=== PATIENT | female | born 1955 | race Caucasian/White ===

== ENCOUNTER 2019-06-27 03:41 | Inpatient (IN) ==
[2019-06-27] MEDS ORDERED: MORPHINE IV ONE (04:27)
--- NOTE | 2019-06-27 04:27 | PROVIDER DOCUMENTATION ---
HPI-Chest Pain - General Chief Complaint: Chest Pain Stated Complaint: POSSIBLE HEART ATTACK-HX OF HEART ATTACK Time Seen by Provider: 06/27/19 03:51 Source: patient Allergies/Adverse Reactions: Patient Allergies Allergy/AdvReac Type Severity Reaction Status Date / Time No Known Allergies Allergy Verified 07/09/13 01:58 Home Medications: Home Medication List Medication Instructions Recorded Confirmed Last Taken Type Amlodipine [Norvasc] 5 mg PO DAILY 07/09/13 07/09/13 Unknown History Aspirin [Aspirin EC] 81 mg PO 07/09/13 07/09/13 Unknown History Carvedilol [Coreg] 6.25 mg PO BID 07/09/13 07/09/13 Unknown History Citalopram [Celexa] 20 mg PO DAILY 07/09/13 07/09/13 Unknown History Clopidogrel [Plavix] 75 mg PO DAILY 07/09/13 07/09/13 Unknown History Ezetimibe [Zetia] 10 mg PO DAILY 07/09/13 07/09/13 Unknown History Gabapentin 200 mg PO BID 07/09/13 07/09/13 Unknown History Isosorbide Mononitrate [Isosorbide 30 mg PO BID 07/09/13 07/09/13 Unknown History Mononitrate ER] LISINOpril [Prinivil] 5 mg PO DAILY 07/09/13 07/09/13 Unknown History Pantoprazole [Protonix] 40 mg PO DAILY@0700 07/09/13 07/09/13 Unknown History - History of Present Illness-CP Nature of Presenting Problem: Patient is a 63 year old white female with history of CAD (S/P CABG & cardiac stents), tobacco abuse, and stage 4 small cell lung cancer complaining of sudden onset of 9/10 sharp substernal chest pain that radiates to left arm- onset 45 minutes prior t0 arrival. Patient took 325mg asprin today. Chest Pain Radiation: reports: arms (left) Quality of Pain: reports: aching, sharp Onset/Duration: gradual, other (45 minutes ago) Nitro Today/Relief: no nitro taken today Aspirin Treatment Today: 325 mg x 1 Similar Symptoms Previously?: Yes Review of Systems - Adult - REVIEW OF SYSTEMS - ADULT Constitutional: denies: chills, fever Eyes: reports: no symptoms reported Ears, Nose, Mouth & Throat: reports: no symptoms reported Cardiovascular: reports: chest pain Respiratory: reports: see HPI Gastrointestinal: reports: no symptoms reported Genitourinary: reports: no symptoms reported Musculoskeletal: reports: no symptoms reported Integumentary: reports: no symptoms reported Neurological: reports: no symptoms reported Psychiatric: reports: no symptoms reported Endocrine: reports: no symptoms reported Past History - Adult - PAST MEDICAL HISTORY-ADULT Review of Records: reports: Old Records Reviewed, Nursing Assessment Review Major Childhood Illnesses: reports: denies history, history unknown - HEART Score HEART Score: History: Moderately Suspicious HEART Score: ECG: Normal HEART Score: Age: 45-65 Years HEART Score: Risk Factors for Atherosclerotic Disease: > or = 3 Risk Factors or History of Atherosclerotic Disease HEART Score: Troponin: < or = Normal Limit Total HEART Score:: 4 Progress - PLAN OF CARE/RESULTS Progress/Plan/Lab Results: Vital Signs - 8 hr 06/27/19 03:41 06/27/19 03:55 06/27/19 04:00 Temperature 98.1 F Pulse Rate 92 H 84 80 Respiratory Rate 15 21 21 Blood Pressure 167/72 167/72 163/91 O2 Sat by Pulse Oximetry 95 96 97 Laboratory Results - last 24 hr 06/27/19 06/27/19 06/27/19 04:20 04:20 04:20 WBC 6.93 RBC 3.78 L Hgb 11.8 L Hct 35.5 L MCV 93.9 MCH 31.2 H MCHC 33.2 RDW Std Deviation 13.4 Plt Count 288 MPV 9.6 Immature Gran % (Auto) 0.3 Neut % (Auto) 67.7 Lymph % (Auto) 26.3 [place] % (Auto) 5.6 Eos % (Auto) 0.0 Baso % (Auto) 0.1 Immature Gran # (Auto) 0.02 Neut # (Auto) 4.69 Lymph # (Auto) 1.82 [place] # (Auto) 0.39 Eos # (Auto) 0.00 Baso # (Auto) 0.01 Sodium 138 Potassium 3.4 L Chloride 101 Carbon Dioxide 22 L Anion Gap 15 BUN 17 Creatinine 0.7 Estimated GFR/1.73 m2 > 60 BUN/Creatinine Ratio 24 Glucose 196 H Calculated Osmolality 283 Calcium 9.6 Total Bilirubin 0.16 L AST 11 ALT 10 Alkaline Phosphatase 132 H Creatine Kinase 29 Troponin T < 0.010 Total Protein 6.9 Albumin 4.3 Globulin 2.6 Albumin/Globulin Ratio 1.7 Orders Category Date Time Status Cardiac Monitoring DIRECTED Care 06/27/19 03:53 Active Saline Loc NOW Care 06/27/19 03:52 Active CBC WITH ELECTRONIC DIFF [HEME] Stat Lab 06/27/19 04:20 Completed CK PROFILE [SP CHEM] Stat Lab 06/27/19 04:20 Received CMP [COMPREHENSIVE METABOLIC PANEL] [CHEM] Stat Lab 06/27/19 04:20 Received TROPONIN T Stat Lab 06/27/19 04:20 Completed Morphine Med 06/27/19 04:27 Discontinued 4 mg IV NOW ONE Ondansetron Odt [Zofran Odt] Med 06/27/19 04:28 Discontinued 8 mg PO NOW ONE Oxygen Device Stat Oth 06/27/19 03:53 Active EKG [EKG] Stat Ther 06/27/19 03:51 Draft EKG [EKG] Stat Ther 06/27/19 05:35 Ordered Result Diagrams: 06/27/19 04:20 06/27/19 04:20 Departure - Departure Disposition: ADMITTED INPATIENT 09 Condition: Stable Referrals and Follow-Ups: Yonatan Avila MD [Primary Care Provider] -
[2019-06-27 04:28] LABS: BASO# 0.01 X1000 (0.0-0.2); BASO% 0.1 % (0.0-0.8); HEMATOCRIT 35.5 % (37.0-47.0); HEMOGLOBIN 11.8 g/dL (12.0-16.0); IMM GRAN# 0.02 X1000 (0.0-0.04); IMM GRAN% 0.3 % (0.0-0.5); LYMPH# 1.82 X1000 (1.2-3.4); LYMPH% 26.3 % (20.5-51.1); MCH 31.2 PG (27-31); MCHC 33.2 g/dL (33-37); MCV 93.9 FL (81-99); MONO# 0.39 X1000 (0.11-0.59); MONO% 5.6 % (1.7-9.3); MPV 9.6 FL (7.4-10.4); NEUT# 4.69 X1000 (1.4-6.5); NEUT% 67.7 % (42.2-75.2); PLT 288 X1000 (130-400); RBC 3.78 XMIL (4.2-5.4); RDW 13.4 % (11.5-14.5); WBC 6.93 X1000 (4.8-10.8)
[2019-06-27] MEDS ORDERED: ZOFRAN ODT PO ONE (04:28)
--- NOTE | 2019-06-27 05:08 | EKG Report ---
Test Performed on : 06/27/2019 03:50:26 AM Test Reason : cp Blood Pressure : / mmHG Vent. Rate : 084 BPM Atrial Rate : 084 BPM P-R Int : 154 ms QRS Dur : 112 ms QT Int : 382 ms P-R-T Axes : 060 073 -63 degrees QTc Int : 451 ms Normal sinus rhythm. ST & T wave abnormality, consider inferolateral ischemia Abnormal ECG When compared with ECG of 08-DEC-2016 12:45, premature ventricular complexes. are no longer present Unconfirmed Result
[2019-06-27 05:41] LABS: AGAP 15; ALB/GLOB RATIO 1.7; ALBUMIN 4.3 g/dL (3.5-5.0); ALKALINE PHOSPHATASE 132 U/L (32-104); BUN 17 mg/dL (8-22); CALCIUM 9.6 mg/dL (8.8-10.2); CHLORIDE 101 mmol/L (98-107); CK PROFILE 29 U/L (24-173); COSMO 283; CREATININE 0.7 mg/dL (0.5-0.9); ESTIMATED GFR > 60; GLUCOSE 196 mg/dL (70-104); GOT 11 U/L (10-30); GPT 10 U/L (10-36); POTASSIUM 3.4 mmol/L (3.5-5.1); SODIUM 138 mmol/L (136-145); TCO2 22 mmol/L (25-35); TOTAL BILIRUBIN 0.16 mg/dL (0.20-1.00); TOTAL PROTEIN 6.9 g/dL (6.3-8.3)
--- NOTE | 2019-06-27 06:29 | PROVIDER DOCUMENTATION ---
HPI-Chest Pain - General Chief Complaint: Chest Pain Stated Complaint: POSSIBLE HEART ATTACK-HX OF HEART ATTACK Time Seen by Provider: 06/27/19 03:51 Source: patient Allergies/Adverse Reactions: Patient Allergies Allergy/AdvReac Type Severity Reaction Status Date / Time No Known Allergies Allergy Verified 07/09/13 01:58 Home Medications: Home Medication List Medication Instructions Recorded Confirmed Last Taken Type Amlodipine [Norvasc] 5 mg PO DAILY 07/09/13 07/09/13 Unknown History Aspirin [Aspirin EC] 81 mg PO 07/09/13 07/09/13 Unknown History Carvedilol [Coreg] 6.25 mg PO BID 07/09/13 07/09/13 Unknown History Citalopram [Celexa] 20 mg PO DAILY 07/09/13 07/09/13 Unknown History Clopidogrel [Plavix] 75 mg PO DAILY 07/09/13 07/09/13 Unknown History Ezetimibe [Zetia] 10 mg PO DAILY 07/09/13 07/09/13 Unknown History Gabapentin 200 mg PO BID 07/09/13 07/09/13 Unknown History Isosorbide Mononitrate [Isosorbide 30 mg PO BID 07/09/13 07/09/13 Unknown History Mononitrate ER] LISINOpril [Prinivil] 5 mg PO DAILY 07/09/13 07/09/13 Unknown History Pantoprazole [Protonix] 40 mg PO DAILY@0700 07/09/13 07/09/13 Unknown History - History of Present Illness-CP Nature of Presenting Problem: Patient is a 63 year old white female with history of CAD (S/P CABG ,MIX2,and cardiac stents- followed by electronic warfare linguist in [place]), tobacco abuse, and stage IV NonHodgkins lymphoma who presents with 9/10 sharp substernal chest pain that radiates to left arm- onset 45 minutes SH[employer] while at rest. No relief with nitro. Location: reports: substernal Chest Pain Radiation: reports: arms Onset/Duration: gradual Timing: still present Context/Activities at Onset: reports: rest Modifying Factors: improves with: nothing Nitro Today/Relief: no nitro taken today Aspirin Treatment Today: provided by ED Review of Systems - Adult - REVIEW OF SYSTEMS - ADULT Constitutional: denies: chills, fever Eyes: reports: no symptoms reported Ears, Nose, Mouth & Throat: reports: no symptoms reported Cardiovascular: reports: see HPI, chest pain Respiratory: reports: no symptoms reported Gastrointestinal: reports: no symptoms reported Genitourinary: reports: no symptoms reported Musculoskeletal: reports: no symptoms reported Integumentary: reports: no symptoms reported Past History - Adult - PAST MEDICAL HISTORY-ADULT Review of Records: reports: Old Records Reviewed, Nursing Assessment Review, Medications Reviewed, Social history reviewed & non-contributory. Major Childhood Illnesses: reports: denies history, history unknown, Diptheria, Mumps, Rubella Gastrointestinal: denies: cancer Endocrine/Immune: reports: denies history Other Conditions: reports: denies history - PRIOR SURGERIES/PROCEDURES Surgical/Procedure History: reports: CABG, cardiac stent - IMMUNIZATION STATUS Childhood Immunizations: UTD Flu Vaccine: UTD - FAMILY HISTORY Family History: reviewed, not pertinent - SOCIAL HISTORY Smoking: greater than 1 pack/day Provider spent 3-5 mins advising pt. on dangers of tobacco.: Discussed manners to quit use, and f/u contacts for add'l counseling. Physical Exam-General - CONSTITUTIONAL General Appearance: alert, no apparent distress, mild distress - EYES Eyes: other (clear) - HEAD, EARS, NOSE, MOUTH & THROAT HENMT: moist mucous membranes, normal ENT inspection - NECK Neck: full range of motion, supple - RESPIRATORY Respiratory: lungs clear, no respiratory distress, no accessory muscle use - CARDIOVASCULAR Cardiovascular: normal peripheral pulses, regular rate, rhythm - GASTROINTESTINAL (ABDOMEN) Abdominal Exam: non tender, soft - MUSCULOSKELETAL Back Exam: no CVA tenderness Extremity: normal range of motion Peripheral Pulses: radial (R): 2+, radial (L): 2+ DTR: bicep (R): 0, 1+ - SKIN Integumentary: normal color, normal turgor, warm/dry - NEUROLOGIC Neurologic: ad operations specialist II-XII nml as tested, grossly normal, no motor/sensory deficits - PSYCHIATRIC Psych/Mental Status: anxious Progress - PLAN OF CARE/RESULTS Progress/Plan/Lab Results: Vital Signs - 8 hr 06/27/19 03:41 06/27/19 03:55 06/27/19 04:00 Temperature 98.1 F Pulse Rate 92 H 84 80 Respiratory Rate 15 21 21 Blood Pressure 167/72 167/72 163/91 O2 Sat by Pulse Oximetry 95 96 97 Laboratory Results - last 24 hr 06/27/19 06/27/19 06/27/19 04:20 04:20 04:20 WBC 6.93 RBC 3.78 L Hgb 11.8 L Hct 35.5 L MCV 93.9 MCH 31.2 H MCHC 33.2 RDW Std Deviation 13.4 Plt Count 288 MPV 9.6 Immature Gran % (Auto) 0.3 Neut % (Auto) 67.7 Lymph % (Auto) 26.3 [place] % (Auto) 5.6 Eos % (Auto) 0.0 Baso % (Auto) 0.1 Immature Gran # (Auto) 0.02 Neut # (Auto) 4.69 Lymph # (Auto) 1.82 [place] # (Auto) 0.39 Eos # (Auto) 0.00 Baso # (Auto) 0.01 Sodium 138 Potassium 3.4 L Chloride 101 Carbon Dioxide 22 L Anion Gap 15 BUN 17 Creatinine 0.7 Estimated GFR/1.73 m2 > 60 BUN/Creatinine Ratio 24 Glucose 196 H Calculated Osmolality 283 Calcium 9.6 Total Bilirubin 0.16 L AST 11 ALT 10 Alkaline Phosphatase 132 H Creatine Kinase 29 Troponin T < 0.010 Total Protein 6.9 Albumin 4.3 Globulin 2.6 Albumin/Globulin Ratio 1.7 Orders Category Date Time Status Cardiac Monitoring DIRECTED Care 06/27/19 03:53 Active Saline Loc NOW Care 06/27/19 03:52 Active CBC WITH ELECTRONIC DIFF [HEME] Stat Lab 06/27/19 04:20 Completed CK PROFILE [SP CHEM] Stat Lab 06/27/19 04:20 Completed CMP [COMPREHENSIVE METABOLIC PANEL] [CHEM] Stat Lab 06/27/19 04:20 Completed TROPONIN T Stat Lab 06/27/19 04:20 Completed Morphine Med 06/27/19 04:27 Discontinued 4 mg IV NOW ONE Ondansetron Odt [Zofran Odt] Med 06/27/19 04:28 Discontinued 8 mg PO NOW ONE Oxygen Device Stat Oth 06/27/19 03:53 Active EKG [EKG] Stat Ther 06/27/19 03:51 Draft EKG [EKG] Stat Ther 06/27/19 05:35 Ordered Result Diagrams: 06/27/19 04:20 06/27/19 04:20 - CONSULTS/PCP/HOSPITALIST Notification #1 *Consult/PCP/Hospitalist*: Dr. Sorenson & Keren, hospitalist service Time Discussed: 06:15 Consult Disposition: Admit Departure - Departure Date of Disposition Decision: 06/27/19 Time of Disposition Decision: 06:30 DIAGNOSIS: Chest pain Qualifiers: Chest pain type: unspecified Qualified Code(s): R07.9 - Chest pain, unspecified CAD (coronary artery disease) Qualifiers: Coronary Disease-Associated Artery/Lesion type: unspecified vessel or lesion type [place] vs. transplanted heart: [place] heart Associated angina: with unspecified angina Qualified Code(s): I25.119 - Atherosclerotic heart disease of [place] coronary artery with unspecified angina pectoris Disposition: ADMITTED INPATIENT 09 Certified Medical Emergency: Emergent Condition: Stable Referrals and Follow-Ups: Yonatan Avila MD [Primary Care Provider] - - Critical Care Note This patient required my direct & personal management of CC.: No Attestation - Physician/ ZACKARY Attestation Patient care was provided by Advanced Practice Provider:: No The physician spent face to face time with patient:: Yes Advanced Practice Provider documentation review:: Supervising physician onsite and consulted in the evaluation and care of this patient. The physician did have a face to face encounter with the patient.
--- NOTE | 2019-06-27 08:27 | EKG Report ---
Test Performed on : 06/27/2019 05:55:55 AM Test Reason : pain Blood Pressure : / mmHG Vent. Rate : 079 BPM Atrial Rate : 079 BPM P-R Int : 168 ms QRS Dur : 096 ms QT Int : 370 ms P-R-T Axes : 068 073 -55 degrees QTc Int : 424 ms Normal sinus rhythm. ST & T wave abnormality, consider inferolateral ischemia Abnormal ECG When compared with ECG of 27-JUN-2019 03:50, (Unconfirmed) No significant change was found Unconfirmed Result
[2019-06-27] MEDS ORDERED: NITROGLYCERIN SL PRN (08:50)
[2019-06-27] MEDS ORDERED: ASPIRIN PO ONE (08:50)
[2019-06-27] MEDS ORDERED: TYLENOL PO PRN (08:59)
[2019-06-27] MEDS ORDERED: MORPHINE IV PRN (08:59)
[2019-06-27] MEDS ORDERED: ZOFRAN IV PRN (08:59)
[2019-06-27] MEDS ORDERED: ASPIRIN EC PO SCH (09:00)
[2019-06-27 10:32] LABS: FREE T4 1.12 ng/dL (0.93-1.70); TSH 1.55 uIUmL (0.27-4.20)
[2019-06-27 10:46] LABS: C REACTIVE PROT QUANT 10.94 mg/L (0.00-5.00)
--- NOTE | 2019-06-27 12:12 | Diag Imaging Result Doc PS360 ---
CHEST-2 VIEWS - 06/27/2019 INDICATION: sob COMPARISON: 05/03/2018 FINDINGS: There is a new right chest port in good position. Stable CABG changes. Stable mild cardiomegaly. There is worsening pulmonary vascular congestion. There is dense bibasilar infiltrate with pronounced curly B lines. No large pleural effusion. IMPRESSION: Cardiomegaly and pulmonary vascular congestion. Significant interstitial infiltrates compatible with pulmonary edema. Electronically signed by Mohamud Rizo 06/27/2019 12:09 PM
--- NOTE | 2019-06-27 13:20 | HISTORY AND PHYSICAL ---
PRIMARY CARE PROVIDER: Dr. Avila. SURG NURSE: Dr. Saldana. ONCOLOGIST: Dr. Castelan. CHIEF COMPLAINT: Chest pain. HISTORY OF PRESENT ILLNESS: Ms. Yaneth Hughes is a 63-year-old female with a medical history of coronary artery disease that started in her 40s, along with a CABG and stents. Also, Non-small cell lung carcinoma on the left since 2018, stage IV. Apparently, recent imaging shows that it was starting to grow. She had been on chemo prior, received anywhere from 8 to 10 treatments, with her last treatment being in 10/2018, and then was switched to Keytruda, but like I said, she had imaging that showed that the mass was growing again, so yesterday, she was started on a new chemo that was called Gemzar, and she is also on Avastin. States she felt fine, had made a pot of chicken stew yesterday evening, developed some indigestion, drank some lemon juice, which cleared up her indigestion, but has severe restless legs syndrome, which was very active last night. She took her medication that she uses for that, and it eased up a little bit, but around 2:30, developed sudden onset of chest tightness that radiated to the left arm, and it lasted up until about 5 a.m. this morning. She states that when she received morphine, it made the chest pain go away, but the left arm tightness was still there, and then she had also taken a full-dose aspirin. Other symptoms she had with that were nausea and vomiting on her way here. She has also been having some headaches. PAST MEDICAL HISTORY: 1. Coronary artery disease with two MIs, and it started in her 40s. Her last WI was around 6 years ago, and she has had cardiac stents with the last one being in 2011, but there were 6 of those, and she had a CABG x4 in 2000. 2. Non-small cell lung carcinoma on the left, stage IV, diagnosed in 2018. Had 8 to 12 chemo treatments, the last one being in 10/2018. Was on Keytruda up until yesterday. She had a new chemo, Gemzar, and she is also on Avastin, followed by Dr. Castelan. 3. Hypertension. 4. Anxiety. 5. GERD. 6. Mini strokes or TIAs that cause her to see spots. 7. GERD. 8. Hyperlipidemia. 9. Left carotid artery stenosis at 90%. No intervention. 10. Iron-deficiency anemia. 11. Restless legs syndrome. 12. COPD. No home oxygen. PAST SURGICAL/PROCEDURE HISTORY: 1. There is a possibility that she has had stress test last year. 2. CABG x4 in 2000. 3. PTCA x6 with the last one being in 2012. 4. Right chest port. 5. Cholecystectomy. 6. Anterior cervical fusion. 7. Right knee replaced. 8. Bilateral carpal tunnel. SOCIAL HISTORY: One pack per day smoker, and continues to smoke, and started at the age of 15. Denies alcohol or illicit drug use. Lives with her grandson. She is disabled. She walks without any difficulties or assistive devices. FAMILY HISTORY: Strong family history of myocardial infarction. Mother was 78, and her father was 56, both from [place], but all of her brothers, and she had 9 brothers and sisters, all started with cardiac history, coronary artery disease in their 40s and 50s. She does have one sister that at 42 from a heart attack and a stroke. ALLERGIES: No known drug allergies. HOME MEDICATIONS: Not yet verified. What is listed from 2013 is aspirin, Celexa, Coreg, Neurontin, isosorbide, Norvasc, Plavix, lisinopril, Protonix, and Zetia. She states she is still on her Plavix. REVIEW OF SYSTEMS: A 14-point review of systems are complete, and all were negative, except for those mentioned above in the HPI. PHYSICAL EXAMINATION: VITAL SIGNS: Temperature 98.1 degrees, heart rate 73, respiratory rate 18, blood pressure 152/75, O2 saturation 98% on 2 L nasal cannula. GENERAL: Ms. Yaneth Hughes is a 63-year-old female. She is in no acute distress. She is able to answer questions appropriately. HEENT: Atraumatic, normocephalic. Pupils equal, round, reactive to light. Extraocular movements intact. Mucous membranes are dry. NECK: Trachea midline. CARDIOVASCULAR: S1, S2. Regular rate and rhythm. No rubs, gallops, murmurs. No lower extremity edema. There are +2 dorsalis and radial pulses. Negative JVD or carotid bruits. PULMONARY: Clear to auscultation. Bilateral breath sounds. Decreased in the left. Tolerating nasal cannula. GASTROINTESTINAL: Soft, nontender, nondistended. Positive bowel sounds x4. EXTREMITIES: Moves all extremities equally. Full range of motion. NEUROLOGIC: A and O x3. Follows commands. Sensory is intact. SKIN: Warm, dry, intact. LABORATORY DATA: White blood cells 6000, hemoglobin 11, hematocrit 35, platelet count 288,000. Sodium 138, potassium 3.4, BUN 17, creatinine 0.7, glucose 196, calcium 9.6. Bilirubin 0.16, AST 11, ALT 10. CK and troponin 2 sets negative, 29 and 34 on the CK, troponin less than 0.01 x2. CRP is 10.94. Albumin 4.3. TSH 1.55. Free T4 is 1.12. Lactate is 1.2. IMAGING: None. DIAGNOSTIC DATA: EKG at 0351: Normal sinus rhythm, rate 84, QTc 451. EKG at 0535: Normal sinus rhythm, rate 79, QTc 424. ASSESSMENT AND PLAN: 1. Chest pain relieved with morphine and aspirin with coronary artery disease history, coronary artery bypass graft, stents. Will get an echocardiogram, do a stress test, consult Cardiology. Two sets of cardiac enzymes are negative. It could just be the fact that she has got the large lymphoma on her left chest, but she stated it felt like when she was having a heart attack 6 years ago. Will do serial cardiac enzymes, as needed nitroglycerin and morphine. 2. Non-small cell lung carcinoma on the left, stage IV. Will consult Dr. Castelan. She recently started a new chemotherapy drug yesterday due to increase in size in the left chest mass. 3. Hypertension, stable. Will continue antihypertensives once they are verified. 4. Gastroesophageal reflux disease. Relieved when she took lemon juice. She states she has not been on Protonix. We may have to restart that. 5. Hyperlipidemia. Will continue her statin. 6. History of transient ischemic attack and left carotid artery stenosis at 90% that had no intervention. No new signs of stroke at this time. 7. Restless legs syndrome. 8. Chronic obstructive pulmonary disease. No home oxygen, but it looks like she was running a little bit more hypoxic when she was here. Her room air saturation this morning was in the 80s. Was placed on nasal cannula, and now she is 92 to 98, so that is improve. May have to put her on nebulizers if her home medications do not get verified soon. 9. Deep venous thrombosis prophylaxis. Will probably do Lovenox. Dictated by CASANDRA Nevarez for Joe Carnes MD cc: CASANDRA Nevarez MD I agree with most components of history, physical, assessment and plan. A separate addendum has been dictated. MTDD
[2019-06-27] MEDS ORDERED: LEXISCAN ONE (14:12)
[2019-06-27] MEDS ORDERED: AMINOPHYLLINE ONE (14:34)
[2019-06-27] MEDS: LOVENOX SUBQ SCH (17:29)
[2019-06-27] MEDS: KLOR-CON PO SCH ×2 (17:29→22:08)
--- NOTE | 2019-06-27 17:36 | Diag Imaging Result Document ---
PROCEDURE NAME: MYOCARDIAL PERF SCAN, STR/REST - 06/27/2019 SUMMARY: The patient was administered 10.8 mCi of technetium 99-m sestamibi after which resting cardiac images were obtained. The patient was subsequently administered Lexiscan 0.4 mg intravenously after which the heart rate went from 75 beats per minute to 89 beats per minute and the blood pressure went from 156/81 to 124/72. With Lexiscan the patient reported mild chest discomfort. Following the administration of the Lexiscan, the patient was administered 31.4 mCi of technetium-99m sestamibi after which gated stress cardiac images were obtained. The patient also received aminophylline 125 mg after administration of stress dose of sestamibi. Baseline ECG demonstrated sinus rhythm and probable left hypertrophy with repolarization abnormality. With Lexiscan, baseline ST and T-wave abnormality did not change significantly. SPECT images were reconstructed in the short, horizontal, and vertical long axis. Review of these images demonstrated a large area of moderate to severely reduced activity in the entire inferior wall stress images which remains predominantly unchanged. On resting images with some reversibility at its periphery and a small area of reversibility in the inferior apex. There is also mildly diminished activity in the anterior wall on stress images seen to a similar degree on resting images. Increased uptake and a loop of bowel beneath the heart is seen on both stress and resting images, potentially interfering with imaging of the inferior wall. SPECT images suggest mild left ventricular enlargement. Gated images demonstrate a calculated left ventricular ejection fraction of 45% with grossly symmetrical wall motion/thickening. TID ratio 1.16. CONCLUSIONS: 1. Adequate response to Lexiscan. 2. Clinically the patient reported very mild chest discomfort with Lexiscan. 3. Electrocardiographically baseline ST and T-wave abnormality did not change significantly with Lexiscan. 4. Lexiscan sestamibi images demonstrate predominantly fixed perfusion defect in the entire inferior wall. Predominantly fixed defect involving the inferior wall as described with some reversibility at its periphery, in particular the inferior apex. Prior inferior infarct with calvin-infarct ischemia suggested. Nonreversible mild anterior attenuation is probably due to breast attenuation artifact. Images are somewhat technically difficult due to increased uptake and what appears to be a loop of bowel beneath the heart on both stress and resting images. Gated images demonstrate a calculated left ventricular ejection fraction 45%. Mild left ventricular enlargement is suggested. Clinical correlation recommended. cc: MD Yuli Mccain CRNP
[2019-06-27 18:00] LABS: URINE SOURCE CLEAN CATCH
[2019-06-27 18:02] LABS: BILIRUBIN URINE NEGATIVE (NEGATIVE); BLOOD URINE NEGATIVE (NEGATIVE); COLOR YELLOW; GLUCOSE URINE NEGATIVE (NEGATIVE); KETONE URINE NEGATIVE (NEGATIVE); LEUKOCYTES URINE NEGATIVE (NEGATIVE); NITRITE URINE NEGATIVE (NEGATIVE); PROTEIN URINE NEGATIVE (NEGATIVE); SP GRAVITY URINE 1.016; TURBIDITY URINE CLEAR (CLEAR); UROBILINOGEN URINE NORMAL (NORMAL)
[2019-06-27 18:03] LABS: UR EPITHELIAL CELLS <10 /HPF (<10); URINE BACTERIA NEGATIVE /HPF; URINE RBC <10 /HPF (<10); URINE WBC <10 /HPF (<10)
[2019-06-27 18:15] LABS: UR AMPHETAMINES QUAL NONE DETECTED (NONE DETECT); UR BARBITUATES QUAL NONE DETECTED (NONE DETECT); UR BENZODIAZEPIN QUAL NONE DETECTED (NONE DETECT); UR CANNABINOIDS QUAL NONE DETECTED (NONE DETECT); UR COCAINE QUAL NONE DETECTED (NONE DETECT); UR METHADONE QUAL NONE DETECTED (NONE DETECT); UR OPIATES QUAL PRESUMPTIVE POSITIVE (NONE DETECT); UR OXYCODONE QUAL NONE DETECTED (NONE DETECT); UR PCP QUAL NONE DETECTED (NONE DETECT)
--- NOTE | 2019-06-27 20:00 | HISTORY AND PHYSICAL ---
ADDENDUM: I agree with most components of history, physical, and plan. In brief, Ms. Hughes is a 63-year-old lady with past medical history of non-small cell lung cancer diagnosed in 2018 which is currently active. The patient received a dose of chemotherapy yesterday, mediastinal lymphadenopathy and left chest mass because of non-Hodgkin's lymphoma, active tobacco abuse, coronary artery disease status post CABG in 2000, cholecystectomy and neck surgery who comes in with chief complaints of acute onset chest pain, located in the center as well as left side of the chest radiating to left shoulder and arm, which started about 2 a.m., lasted for several hours. In the emergency room her troponins were negative. EKG had ST-segment depression in anterolateral and inferior leads, so the hospitalist team was consulted for further management. SUBJECTIVE: At the time of my examination, the patient is complaining of headache. She is chest pain free. VITALS: Temperature 97.5 degrees, pulse 80 respiratory 20, blood pressure 138/64, saturating 96% on 2 L nasal cannula. PHYSICAL EXAMINATION: GENERAL: Does not appear in acute distress. HEENT: Oral cavity is moist. LUNGS: Air entry bilaterally equal. No wheeze, rhonchi. She does have inspiratory crackles bilateral infrascapular region. She has a right-sided chest port. CARDIOVASCULAR: S1, S2 normal. No murmur or gallop. ABDOMEN: Soft, nontender. No lower extremity edema. LABS: Suggestive of acceptable range of hemoglobin, normal platelet count, hypokalemia being repleted, normal kidney function. Her troponins were negative. EKG as mentioned above. Chest x- ray had cardiomegaly, mild pulmonary vascular congestion. ASSESSMENT AND PLAN: 1. Chest pain at rest, anginal with prior history of coronary artery disease and CABG. 2. Mediastinal left-sided chest non small cell lung cancer. 3. History of chronic gastroesophageal reflux disease. PLAN: The patient is to get myocardial perfusion scan. She received aspirin 325 mg in the morning time. Continue her on Plavix, beta blockers, enoxaparin for deep vein thrombosis prophylaxis as well as Prilosec. Follow up with stress test results. Plan of care discussed with the patient. Cardiology has also been consulted. I will follow up with echocardiogram. cc: MD JOAQUÍN Caldwell
[2019-06-27] MEDS ORDERED: COREG PO SCH (21:00)
--- NOTE | 2019-06-27 22:19 | CARDIOLOGY CONSULTATION ---
DATE: 06/27/2019 REQUESTING PROVIDER: Hospitalist service. PRIMARY PHYSICIAN: Yonatan Avila MD PRIMARY YEAST FERMENTATION ATTENDANT: Mateus Saldana MD REASON FOR CONSULTATION: Chest pain. HISTORY: Ms. Hughes is a 63-year-old female who received the first dose of a planned course of chemotherapy which is aimed at treating advanced adenocarcinoma of the lung, which is located mainly on the left lung. The patient received the chemotherapy between 9:30 and 11:30 in the morning of 06/26/2019. She was dismissed around noontime. She got home, did not feel very hungry. Later on that she ate some chicken stew and went to bed. Lying in bed, she felt like her restless legs were acting up. She could not find a comfortable position. At about 2:30 in the morning of 06/27, she started having significant heaviness and discomfort in the left anterior chest, radiating to the left arm. That did not quite feel like her previous bouts of angina; however, because of her history of heart disease she got scared and decided to come to the emergency room. She came into the ER at about 3:00 in the morning. They did an EKG that shows sinus rhythm with diffuse repolarization abnormality. Subsequent EKG shows just about the same. This probably was less exaggerated on the second EKG, although it was diffusely abnormal. They did a chest x-ray that shows cardiomegaly, question of pulmonary edema. They have not checked a proBNP. Two troponin levels are negative. They arranged for a stress test, which has been completed and is in the process of being reported. At the time of my evaluation, which is 4:30 p.m. on 06/27/2019, the patient tells me that she is feeling fine. Two daughters, son-in-law and ex- are at the bedside. She seems to be comfortable in no distress. PAST MEDICAL HISTORY: Positive for a diagnosis of advanced lung cancer that was made last year. Apparently she initially responded to chemotherapy and then lately they found recurrence of it and now they have put her on a new regimen of chemotherapy. The patient has coronary heart disease. She had coronary bypass surgery in 2000. Over the course of the years, she has had multiple stents. The last 2 heart catheterizations that she had, one in 2011 and the other one in 2012, showed that her mammary graft was patent; however, in the catheterization done in 2012, they could not visualize the vein graft to the diagonal branch of the LAD, which was a relatively large vessel. The patient has been treated medically. She has not had stents since 2007. She has hypertension, hyperlipidemia. She has stenosis of the left carotid artery, which has been left untreated because of concerns that her cancer is too aggressive and advanced. She has restless legs syndrome, COPD. PAST SURGICAL HISTORY: In addition to bypass, she had cholecystectomy, anterior cervical fusion, left knee surgery and bilateral carpal tunnel. SOCIAL HISTORY: She is disabled, lives with her family. She has been a smoker for many years. Not a drinker. She is . FAMILY HISTORY: Parents had coronary heart disease. ALLERGIES: She is not allergic to any medicine. MEDICATIONS: Home medications at this time include amlodipine 5 mg daily, carvedilol 6.25 twice a day, Celexa 20 at bedtime, Plavix 75 daily, gabapentin 300 four times a day, Lopid 300 twice a day, hydrocodone 4 times a day, isosorbide mononitrate 20 mg 3 times a day, lisinopril 5 mg daily, Tizanidine 4 mg at bedtime. REVIEW OF SYSTEMS: Lately, she has been increasingly more short of breath, weak and tired. PHYSICAL EXAMINATION: Blood pressure is 138/64, temperature 97.5 degrees, pulse 79, respirations 21. She is awake, alert, oriented, in no distress.HEENT: Unremarkable. She does have a left cervical bruit. Chest shows diminished breath sounds in the left lung. Heart sounds are regular, rhythmic. Question of systolic murmur over the left sternal border. Abdomen is nontender, soft. No masses. No hepatomegaly. Extremities showed palpable pulses. No edema. Neurologic nonfocal. Moves all 4 extremities. LABORATORY DATA: Hemoglobin 11.8, platelet count is 288,000. Sodium 138, potassium 3.4, BUN 17, creatinine is 0.7. C-reactive protein 10.94. CPK 34. TSH 54, normal. IMPRESSION: 1. Patient who presented with sudden onset of chest pain hours after finishing the first round of a new plan of chemotherapy for recurrent cancer of the lung, adenocarcinoma. Question of angina pectoris versus noncardiac chest pain. 2. Severe coronary heart disease, history of quadruple coronary bypass surgery with progressive disease. 3. Chronic angina pectoris. 4. Hyperlipidemia. 5. History of carotid artery stenosis on the left side. 6. History of hypertension. 7. Restless legs syndrome. RECOMMENDATIONS: At this time a stress test has been done. We will have to review the study. Dr. Mcmahon is going to report it later on today. An echocardiogram has also been requested. It will be done later on. We will continue to trend troponins. If the troponins are negative, the stress test is unimpressive and her echocardiogram is also found to be unimpressive, I believe the patient may be told that her pain is probably of noncardiac etiology and I will suggest to manage her very conservatively. Her diagnosis of lung cancer, advanced, recurrent, makes her a very poor prognostic case. I will try to touch bases with the Oncology service. Further instructions will depend on the results of the aforementioned tests that are pending. cc: Perry Copeland MD MTDD
[2019-06-28] MEDS ORDERED: PRILOSEC PO SCH (07:00)
[2019-06-28] MEDS ORDERED: ZOFRAN ODT PO PRN (07:42)
[2019-06-28] MEDS ORDERED: LASIX IV ONE (07:44)
--- NOTE | 2019-06-28 08:13 | EKG Report ---
Test Performed on : 06/28/2019 08:01:45 AM Test Reason : chest pain Blood Pressure : / mmHG Vent. Rate : 063 BPM Atrial Rate : 063 BPM P-R Int : 158 ms QRS Dur : 096 ms QT Int : 428 ms P-R-T Axes : 050 072 159 degrees QTc Int : 437 ms Sinus rhythm. with premature ventricular complexes. ST & T wave abnormality, consider anterolateral ischemia Abnormal ECG When compared with ECG of 27-JUN-2019 05:55, (Unconfirmed) T wave inversion no longer evident in Inferior leads T wave inversion more evident in Lateral leads Confirmed by Abdias ALEXANDER, Saul Yee ([id number]) on 06/29/2019 9:02:30 AM
[2019-06-28 08:21] VITALS: BP 135/56
[2019-06-28 08:21] LABS: BASO# 0.01 X1000 (0.0-0.2); BASO% 0.2 % (0.0-0.8); EOS# 0.03 X1000 (0.0-0.7); EOS% 0.5 % (0.0-10.0); HEMATOCRIT 38.1 % (37.0-47.0); HEMOGLOBIN 12.6 g/dL (12.0-16.0); LYMPH% 24.8 % (20.5-51.1); MCH 31.2 PG (27-31); MCHC 33.1 g/dL (33-37); MCV 94.3 FL (81-99); MONO# 0.12 X1000 (0.11-0.59); MPV 9.6 FL (7.4-10.4); NEUT% 72.5 % (42.2-75.2); PLT 282 X1000 (130-400); RBC 4.04 XMIL (4.2-5.4); RDW 13.3 % (11.5-14.5); WBC 6.06 X1000 (4.8-10.8)
[2019-06-28] MEDS: LOVENOX SUBQ SCH (08:24)
[2019-06-28 08:52] LABS: AGAP 12; ALB/GLOB RATIO 1.2; ALBUMIN 3.8 g/dL (3.5-5.0); ALKALINE PHOSPHATASE 132 U/L (32-104); BUN 14 mg/dL (8-22); CALCIUM 8.3 mg/dL (8.8-10.2); CHLORIDE 100 mmol/L (98-107); CHOLESTEROL 177 mg/dL (0-200); COSMO 268; CREATININE 0.5 mg/dL (0.5-0.9); ESTIMATED GFR > 60; GLUCOSE 89 mg/dL (70-104); GOT 14 U/L (10-30); GPT 10 U/L (10-36); HDL 33 mg/dL (45-65); LDL 104 mg/dL; POTASSIUM 4.1 mmol/L (3.5-5.1); SODIUM 134 mmol/L (136-145); TCO2 22 mmol/L (25-35); TOTAL BILIRUBIN 0.58 mg/dL (0.20-1.00); TOTAL PROTEIN 7.1 g/dL (6.3-8.3); TRIGLYCERIDES 199 mg/dL (35-135); VLDL 40 mg/dL
[2019-06-28] MEDS ORDERED: IMDUR PO SCH (09:00)
[2019-06-28] MEDS ORDERED: LOPID PO SCH (09:00)
[2019-06-28] MEDS ORDERED: PLAVIX PO SCH ×2 (09:00)
[2019-06-28] MEDS ORDERED: PRINIVIL PO SCH (09:00)
[2019-06-28] MEDS ORDERED: CYANOCOBALAMIN SCH (09:00)
[2019-06-28] MEDS ORDERED: NORVASC PO SCH (09:00)
[2019-06-28] MEDS ORDERED: COREG PO SCH (09:00)
[2019-06-28] MEDS ORDERED: NEURONTIN PO SCH (09:00)
[2019-06-28] MEDS ORDERED: NORCO-7.5 PO SCH (09:00)
--- NOTE | 2019-06-28 14:23 | ECHO REPORT ---
ORDER DATE: 06/27/2019 INDICATION: Chest pain. FINDINGS: 1. The right atrium appears normal size at 3.3 cm. 2. Mild tricuspid regurgitation. Insufficient data to estimate RV systolic pressure. 3. Normal RV size and systolic function. 4. Mild pulmonic insufficiency. 5. Suggestion of mild left atrial enlargement with a dimension of 4 cm. 6. No mitral prolapse. Mild mitral regurgitation. No evidence of mitral stenosis. 7. Normal LV size, end-diastolic dimension of 5.4. Normal wall thicknesses with a posterior and interventricular septal wall thickness of 0.8 and 1.1 cm respectively. Normal LV systolic function. The estimated EF is 55%. On some views, there appears to be some possible hypokinesis of the inferior base; however, this is difficult to see, not identified in all planes. The endocardial borders are poorly visualized on some views. Repetition with Optison contrast may be beneficial. 8. Aortic valve appears to open reasonably well. The peak gradient across valve is 21 with a mean of 12. If there is aortic stenosis, it is minimal. There is no insufficiency. 9. Aorta appears normal in the visualized segments. 10. No pericardial effusion identified. cc: MD Yuli Gallardo CRNP
[2019-06-28] MEDS ORDERED: ZANAFLEX PO SCH (21:00)
[2019-06-28] MEDS ORDERED: CELEXA PO SCH (21:00)
--- NOTE | 2019-06-29 08:15 | DISCHARGE SUMMARY ---
ADMISSION DATE: 06/27/2019 DISCHARGE DATE: 06/28/2019 DISCHARGE DISPOSITION: Home. DISCHARGE CONDITION: Hemodynamically stable. She is not experiencing any more chest pain or shortness of breath. Her nuclear medicine stress test and echocardiogram were within acceptable range. DISCHARGE DIAGNOSES: 1. Left-sided anginal chest pain. 2. Chronic gastroesophageal reflux disease. OTHER DIAGNOSES: 1. Non-small cell lung cancer affecting the left hemithorax and patient received Gemzar and Avastin on 06/26/2019, which is metastatic. 2. History of coronary artery disease, 2 myocardial infarctions in her 40s, status post coronary artery bypass graft in 2000. 3. Non-small cell lung cancer left side, stage IV, diagnosed in 2018 on active chemotherapy. 4. Active tobacco abuse. 5. Essential hypertension. 6. Anxiety. 7. History of chronic gastroesophageal reflux disease. 8. History of mini strokes or transient ischemia attacks. 9. History of left carotid artery stenosis of about 90%, managed medically considering her long- term prognosis. 10. History of restless legs syndrome. 11. History of chronic obstructive pulmonary disease. CONSULTATIONS DURING HOSPITAL ADMISSION: Bung Remover, Dr. Copeland. DISCHARGE MEDICATIONS: Citalopram 20 mg at nighttime, tizanidine 4 mg at nighttime, carvedilol 6.25 mg b.i.d., vitamin B12 1000 mcg daily, gabapentin 300 mg 4 times a day, hydrocodone acetaminophen 7.53 25 mg 1 tablet 4 times a day, isosorbide mononitrate 30 mg t.i.d., gemfibrozil 600 mg b.i.d., amlodipine 5 mg daily, clopidogrel 75 mg daily, lisinopril 5 mg daily, ondansetron 4 mg every 6 hours as needed for nausea and vomiting. VITAL SIGNS: At the time of discharge temperature 98.1 degrees, pulse 61, respiratory rate 18, blood pressure 135/56, saturating 94% on room air. PHYSICAL EXAMINATION: General: She does not appear in any acute distress. Oral cavity is moist. Lungs: Air entry bilaterally equal. No wheeze or rhonchi. Mild inspiratory crackles bilateral infrascapular region. She has a right-sided chest port. Cardiovascular: S1, S2 normal. No murmur, rub, or gallop. Abdomen: Soft, nontender. Extremities: No lower extremity edema. Neurologic: She is alert and oriented x3. SIGNIFICANT LABORATORY DATA: During hospital admission and discharge, WBC 6000, hemoglobin 12.6, platelet 282,000. Sodium 134, potassium 4.1. Magnesium was 2. BUN 14, creatinine 0.5. Urine toxicology was positive for opioids. Microbiology during hospital admission none. IMAGING DURING HOSPITAL ADMISSION: Myocardial perfusion nuclear medicine scan had adequate response to Lexiscan. Clinically, the patient reported very mild chest discomfort with Lexiscan. Electrocardiographically, baseline ST-T abnormalities did not change significantly with Lexiscan. The images demonstrated predominantly fixed perfusion defect in the entire inferior wall with some reversibility at its periphery, particularly in the inferior apex. Prior inferior infarct with calvin-infarct ischemia was suggested. There was non- reversible mild anterior attenuation due to breast attenuation artifact. Images were somewhat technically difficult due to increased uptake and loop of bowel underneath the heart on both stress and resting images. Gated images demonstrated a calculated left ventricular ejection fraction of 45% with mild left ventricular enlargement. Chest x-ray on admission had cardiomegaly, pulmonary vascular congestion, significant interstitial infiltrate compatible with pulmonary edema however patient was not symptomatic. She did have cough which was baseline for her. She did not have any WBC count to suggest pneumonia. Electrocardiogram on admission had inferolateral ST abnormalities which were her baseline. Final electrocardiogram read was not back. HOSPITAL COURSE SUMMARY: Ms. Hughes is 63-year-old lady with past medical history of coronary artery disease requiring CABG in 2000, non-small cell lung cancer, on active chemotherapy, 90% left carotid artery stenosis, managed medically considering long-term prognosis, active tobacco abuse who also had cholecystectomy and neck surgery in the past. She came in with chief complaints of left-sided chest pain, heavy, pressure-like radiating to left shoulder nd left arm at about 2 a.m., which lasted until 5 a.m. Associated with that, she mild shortness of breath in the emergency room. Her EKG had old ST-T changes with ST depressions affecting inferolateral leads. Her troponins were negative. Considering her prior history of coronary artery disease and CABG, Cardiology was consulted and she underwent a nuclear medicine stress test. The stress test, however, was unremarkable except a large inferior infarct with possibility of mild calvin-infarct ischemia. Considering the patient's metastatic lung cancer and the fact that she had just received chemotherapy for left-sided non-small cell lung cancer, it was thought that her chest pain could be related to her lung cancer and the cardiology team had advised conservative management with optimization of medication. She was advised to follow up with her regular national sales consultant within 7 days. The patient had been coughing which had been pretty close to her baseline and she had not noticed any change in her cough expectoration recently. She was not febrile and she did not have any leukocytosis, so it was decided not to treat. TIME SPENT AT DISCHARGE: Less than 30 minutes was spent discharging the patient. Plan of care was discussed with her. All questions were answered. cc: Joe Carnes MD MTDD
== END 2019-06-28 09:10 | disposition home or self-care (01) | DRG 303 ==
LOC: ED 03:41 → EDIPHOLD 03:42 → 3N 15:44
PROVIDERS: ATTEND Internal Medicine

== ENCOUNTER 2019-12-20 17:42 | Inpatient (IN) ==
[2019-12-20 18:13] LABS: URINE SOURCE CLEAN CATCH
[2019-12-20 18:17] LABS: BILIRUBIN URINE NEGATIVE (NEGATIVE); BLOOD URINE MODERATE (NEGATIVE); COLOR YELLOW; GLUCOSE URINE NEGATIVE (NEGATIVE); KETONE URINE NEGATIVE (NEGATIVE); LEUKOCYTES URINE MODERATE (NEGATIVE); NITRITE URINE POSITIVE (NEGATIVE); PROTEIN URINE 70 mg/dL (NEGATIVE); SP GRAVITY URINE 1.037; TURBIDITY URINE HAZY (CLEAR); UROBILINOGEN URINE 3 mg/dL (NORMAL)
[2019-12-20 18:29] LABS: UR EPITHELIAL CELLS <10 /HPF (<10); URINE BACTERIA 4+ /HPF; URINE RBC <10 /HPF (<10); URINE WBC TNTC /HPF (<10)
[2019-12-20 18:55] LABS: URINE CASTS NONE SEEN; URINE CRYSTALS NONE SEEN; URINE YEAST NONE SEEN
[2019-12-20] MEDS ORDERED: ROCEPHIN 1 GM in NS 50 ML IV ONE (18:56)
[2019-12-20] MEDS ORDERED: NS 1,000 ML IV ONE (18:56)
--- NOTE | 2019-12-20 19:13 | PROVIDER DOCUMENTATION ---
HPI-Female /OB/Breast - General Chief Complaint: Female Stated Complaint: "KIDNEY STONE" Time Seen by Provider: 12/20/19 18:41 Source: reports: patient Allergies/Adverse Reactions: Patient Allergies Allergy/AdvReac Type Severity Reaction Status Date / Time No Known Allergies Allergy Verified 12/20/19 19:58 Home Medications: Home Medication List Medication Instructions Recorded Confirmed Last Taken Type Amlodipine [Norvasc] 5 mg PO DAILY 07/09/13 12/20/19 12/20/19 History Carvedilol [Coreg] 6.25 mg PO BID 07/09/13 12/20/19 12/20/19 History Citalopram [Celexa] 20 mg PO QHS 07/09/13 12/20/19 12/19/19 History Clopidogrel [Plavix] 75 mg PO DAILY 07/09/13 12/20/19 12/20/19 History Gabapentin 300 mg PO 4XDAY 07/09/13 12/20/19 12/20/19 History Isosorbide Mononitrate [Isosorbide 30 mg PO BID 07/09/13 12/20/19 12/20/19 History Mononitrate ER] LISINOpril [Prinivil] 5 mg PO DAILY 07/09/13 12/20/19 12/20/19 History Cyanocobalamin (Vitamin B-12) 1,000 mcg IJ PRN PRN 06/27/19 12/20/19 12/20/19 History [Cyanocobalamin Injection] Gemfibrozil [Lopid] 600 mg PO BID 06/27/19 12/20/19 12/20/19 History Tizanidine [Zanaflex] 4 mg PO QHS 06/27/19 12/20/19 12/19/19 History - History of Present Illness-Female /OB Nature of Presenting Problem: Patient is a 64 yof who c/o lower back pain, dysuria, and urinary urgency since yesterday. Hx of lung cancer, currently on chemotherapy. Denies fever or any other complaints. Pt non-toxic in appearance. Review of Systems - Adult - REVIEW OF SYSTEMS - ADULT Constitutional: reports: no symptoms reported. denies: chills, fever Eyes: reports: no symptoms reported Ears, Nose, Mouth & Throat: reports: no symptoms reported Cardiovascular: reports: no symptoms reported Respiratory: reports: no symptoms reported Gastrointestinal: reports: no symptoms reported. denies: abdominal pain, diarrhea, nausea, vomiting Genitourinary: reports: see HPI Musculoskeletal: reports: see HPI, back pain Integumentary: reports: no symptoms reported Neurological: reports: no symptoms reported Psychiatric: reports: no symptoms reported Endocrine: reports: no symptoms reported Hematologic/Lymphatic: reports: no symptoms reported Allergic/Immunologic: reports: no symptoms reported All Other Systems: Reviewed and Negative Past History - Adult - PAST MEDICAL HISTORY-ADULT Review of Records: reports: Nursing Assessment Review, Medications Reviewed, Social history reviewed & non-contributory. Major Childhood Illnesses: reports: denies history Cardiovascular: reports: CAD, HTN Respiratory: reports: cancer Gastrointestinal: reports: denies history. denies: cancer Genitourinary: reports: denies history Musculoskeletal: reports: denies history Neurological: reports: denies history Endocrine/Immune: reports: denies history Other Conditions: reports: denies history - PRIOR SURGERIES/PROCEDURES Surgical/Procedure History: reports: reviewed, not pertinent, CABG, cardiac stent - IMMUNIZATION STATUS Childhood Immunizations: UTD Flu Vaccine: UTD - FAMILY HISTORY Family History: reviewed, not pertinent - SOCIAL HISTORY Smoking: non-smoker Physical Exam-General - PHYSICAL EXAM-ADULT Initial Vital Signs Reviewed: Yes - CONSTITUTIONAL General Appearance: alert, no apparent distress. negative: lethargic, slow to respond - EYES Eyes: PERRL/EOMI - HEAD, EARS, NOSE, MOUTH & THROAT HENMT: normocephalic/atraumatic, moist mucous membranes - NECK Neck: full range of motion, supple, normal inspection - RESPIRATORY Respiratory: chest non-tender, lungs clear, normal breath sounds, no pleuratic chest pain, no respiratory distress, no accessory muscle use - CARDIOVASCULAR Cardiovascular: regular rate, rhythm, no gallop, no murmur - GASTROINTESTINAL (ABDOMEN) Abdominal Exam: normal bowel sounds, non tender, soft - MUSCULOSKELETAL Back Exam: normal inspection, no CVA tenderness Extremity: normal range of motion, non-tender, normal gait, normal inspection - SKIN Integumentary: normal color, warm/dry. negative: cyanosis, diaphoresis, jaundice, mottled, pallor - NEUROLOGIC Neurologic: grossly normal, no motor/sensory deficits - PSYCHIATRIC Psych/Mental Status: normal mood/affect, normal thought content, normal thought process, oriented x 3 Progress - PLAN OF CARE/RESULTS Progress/Plan/Lab Results: Vital Signs - 8 hr 12/20/19 17:59 12/20/19 20:40 Temperature 98.6 F 98.3 F Pulse Rate 79 89 Respiratory Rate 16 20 Blood Pressure 116/60 132/66 O2 Sat by Pulse Oximetry 98 95 Laboratory Results - last 24 hr 12/20/19 12/20/19 12/20/19 18:05 19:45 19:45 WBC 17.47 H RBC 2.85 L Hgb 10.4 L Hct 32.8 L MCV 115.1 H MCH 36.5 H MCHC 31.7 L RDW Std Deviation 19.3 H Plt Count 62 L MPV 12.6 H Immature Gran % (Auto) 1.7 H Neut % (Auto) 78.0 H Lymph % (Auto) 13.1 L [place] % (Auto) 6.8 Eos % (Auto) 0.2 Baso % (Auto) 0.2 Immature Gran # (Auto) 0.29 H Neut # (Auto) 13.65 H Lymph # (Auto) 2.28 [place] # (Auto) 1.18 H Eos # (Auto) 0.04 Baso # (Auto) 0.03 Sodium 138 Potassium 4.0 Chloride 102 Carbon Dioxide 22 L Anion Gap 14 BUN 16 Creatinine 0.7 Estimated GFR/1.73 m2 > 60 BUN/Creatinine Ratio 23 Glucose 92 Calculated Osmolality 277 Calcium 9.3 Total Bilirubin 0.31 AST 10 ALT 6 L Alkaline Phosphatase 169 H Total Protein 7.4 Albumin 3.9 Globulin 3.5 Albumin/Globulin Ratio 1.1 Urine Source CLEAN CATCH Urine Color YELLOW Urine Turbidity HAZY Urine pH 6.0 Ur Specific [place] 1.037 Urine Protein 70 A Ur Glucose (Stick) NEGATIVE Ur Ketones (Stick) NEGATIVE Urine Blood MODERATE A Urine Nitrite POSITIVE A Urine Bilirubin NEGATIVE Urobilinogen Dipstick 3 A Urine Leukocytes MODERATE A Urine WBC (Auto) TNTC A Urine RBC (Auto) <10 U Epithel Cells (Auto) <10 Urine Bacteria (Auto) 4+ Urine Crystals NONE SEEN Small Round Cells Not Reportable Urine Casts NONE SEEN Urine Yeast-like Cells NONE SEEN Orders Category Date Time Status CT RENAL STONE SEARCH [CT] Stat Exams 12/20/19 18:56 Completed BLOOD CULTURE [BLDCUL] Stat Lab 12/20/19 20:53 Uncollected CBC WITH DIFF [HEME] Stat Lab 12/20/19 19:45 Completed COMPREHENSIVE METABOLIC PANEL [CHEM] Stat Lab 12/20/19 19:45 Completed LACTATE, PLASMA [CHEM] Stat Lab 12/20/19 20:53 Uncollected UA NIMS W/REFLEX CULT [URINALYSIS] Stat Lab 12/20/19 18:05 Completed URINE CULTURE [RM] Routine Lab 12/20/19 19:51 Received URINE MANUAL MICROSCOPIC [URINALYSIS] Stat Lab 12/20/19 18:05 Completed 0.9% Sodium Chloride Inj [Ns] 1,000 ml Med 12/20/19 18:56 Discontinued IV 999 mls/hr CefTRIAXONE [Rocephin] 1 gm Med 12/20/19 18:56 Discontinued 0.9% Sodium Chloride Inj [Ns] 50 ml IV NOW Result Diagrams: 12/20/19 19:45 12/20/19 19:45 - REASSESSMENT Reassessment #1 Time Reassessed: 20:52 Status: other (Admitting HPS paged. Pt in agreement with plan to admit. Declined pain medicine during initial encounter and declines at this time stating she took a [place] [employer] senior.) - CT/MRI 1 CT Study: Renal Stone ([facility] - [address] [facility], [address] [id number] [facility] - [address] [place] [address] Department of Imaging Patient: ALLEN REESE Date: 12/20/19#: [id number] : 1955DM Status: [facility]#: [id number] Age/Sex: 64/FRoom/Bed: Loc: ED Ordering Physician: Burak Brown Family Physician: Yonatan Avila MD Reason for Procedure: lower back pain, hematuria Signed EXAM: CT RENAL STONE SEARCH 12/20/2019 HISTORY: lower back pain, hematuria TECHNIQUE: This exam was performed using automated exposure control, adjustment of mA or kV according to patient size, and/or use of iterative reconstruction technique. COMMENT: There is a somewhat ill-defined mass in the left lower lobe. This was not present at the time the previous thoracic study of 05/08/2018 however there was a infrahilar mass that time. The spleen contains granulomata as does the liver. There has been cholecystectomy. There is a stone in the upper pole of the right kidney measuring 4 mm. There is an apparent stone at the level of the sacral promontory in the left ureter measuring less than 3 mm. The urinary bladder is not distended. There are phleboliths in the pelvis. IMPRESSION: Right nephrolithiasis and apparent distal left ureterolithiasis without significant obstruction. Left lower lobe mass. Electronically signed by Raymon Garcia 12/20/2019 7:33 PM 12/20/19 193 Interpreting Physician: Raymon Garcia MD Dictated Date/Time: 12/20/191924 cc: Burak Brown; Yonatan Avila MD) - CONSULTS/PCP/HOSPITALIST Notification #1 *Consult/PCP/Hospitalist*: Dr. Martinez Time Discussed: 21:03 Reason/Comments: admission- UTI, kidney stones, leukocytosis Consult Disposition: Admit Departure - Departure Date of Disposition Decision: 12/20/19 Time of Disposition Decision: 21:03 DIAGNOSIS: Lung mass, Kidney stones UTI (urinary tract infection) Qualifiers: Urinary tract infection type: site unspecified Hematuria presence: with hematuria Qualified Code(s): N39.0 - Urinary tract infection, site not specified; R31.9 - Hematuria, unspecified Leukocytosis Qualifiers: Leukocytosis type: unspecified Qualified Code(s): D72.829 - Elevated white blood cell count, unspecified Disposition: ADMITTED INPATIENT 09 Certified Medical Emergency: Emergent Condition: Stable Referrals and Follow-Ups: Yonatan Avila MD [Primary Care Provider] - - Critical Care Note This patient required my direct & personal management of CC.: No Attestation - Physician/ ZACKARY Attestation Patient care was provided by Advanced Practice Provider:: Yes Advanced Practice Provider:: Burak Brown Advanced Practice Provider documentation review:: The Mid-level provider documentation, treatment plan and medical decision making was reviewed by the physician who agrees with all treatment and medical decision making by the MLP. The physician spent face to face time with patient:: No Advanced Practice Provider documentation review:: Supervising physician onsite and consulted in the evaluation and care of this patient. The physician did not have a face to face encounter with the patient.
--- NOTE | 2019-12-20 19:36 | Diag Imaging Result Doc PS360 ---
EXAM: CT RENAL STONE SEARCH 12/20/2019 HISTORY: lower back pain, hematuria TECHNIQUE: This exam was performed using automated exposure control, adjustment of mA or kV according to patient size, and/or use of iterative reconstruction technique. COMMENT: There is a somewhat ill-defined mass in the left lower lobe. This was not present at the time the previous thoracic study of 05/08/2018 however there was a infrahilar mass that time. The spleen contains granulomata as does the liver. There has been cholecystectomy. There is a stone in the upper pole of the right kidney measuring 4 mm. There is an apparent stone at the level of the sacral promontory in the left ureter measuring less than 3 mm. The urinary bladder is not distended. There are phleboliths in the pelvis. IMPRESSION: Right nephrolithiasis and apparent distal left ureterolithiasis without significant obstruction. Left lower lobe mass. Electronically signed by Raymon Garcia 12/20/2019 7:33 PM
[2019-12-20 20:39] LABS: BASO# 0.03 X1000 (0.0-0.2); BASO% 0.2 % (0.0-0.8); EOS# 0.04 X1000 (0.0-0.7); EOS% 0.2 % (0.0-10.0); HEMATOCRIT 32.8 % (37.0-47.0); HEMOGLOBIN 10.4 g/dL (12.0-16.0); IMM GRAN# 0.29 X1000 (0.0-0.04); IMM GRAN% 1.7 % (0.0-0.5); LYMPH# 2.28 X1000 (1.2-3.4); LYMPH% 13.1 % (20.5-51.1); MCH 36.5 PG (27-31); MCHC 31.7 g/dL (33-37); MCV 115.1 FL (81-99); MONO# 1.18 X1000 (0.11-0.59); MONO% 6.8 % (1.7-9.3); MPV 12.6 FL (7.4-10.4); NEUT# 13.65 X1000 (1.4-6.5); PLT 62 X1000 (130-400); RBC 2.85 XMIL (4.2-5.4); RDW 19.3 % (11.5-14.5); WBC 17.47 X1000 (4.8-10.8)
[2019-12-20 20:55] LABS: AGAP 14; ALB/GLOB RATIO 1.1; ALBUMIN 3.9 g/dL (3.5-5.0); ALKALINE PHOSPHATASE 169 U/L (32-104); BUN 16 mg/dL (8-22); CALCIUM 9.3 mg/dL (8.8-10.2); CHLORIDE 102 mmol/L (98-107); COSMO 277; CREATININE 0.7 mg/dL (0.5-0.9); ESTIMATED GFR > 60; GLUCOSE 92 mg/dL (70-104); GOT 10 U/L (10-30); GPT 6 U/L (10-36); SODIUM 138 mmol/L (136-145); TCO2 22 mmol/L (25-35); TOTAL BILIRUBIN 0.31 mg/dL (0.20-1.00); TOTAL PROTEIN 7.4 g/dL (6.3-8.3)
[2019-12-20] MEDS ORDERED: G.I. COCKTAIL PO ONE (21:43)
[2019-12-20] MEDS ORDERED: SODIUM CHLORIDE 0.9% INJ ONE (21:55)
[2019-12-20] MEDS ORDERED: PROTONIX IV ONE (21:55)
--- NOTE | 2019-12-20 23:21 | HISTORY AND PHYSICAL ---
PRIMARY CARE PROVIDER: Dr. Yonatan Avila. REASON FOR ADMISSION: Two-day history of chills, fever and headache. HISTORY OF PRESENT ILLNESS: Ms. Yaneth Hughes is a 62-year-old white female who has a history of COPD, lung cancer, currently on chemo, last chemo treatment last week. He has a history of CAD, hypertension, kidney stones, reflux disease, peripheral arterial disease, who comes in complaining of lower back pain yesterday with frequent voiding with small amounts, but no dysuria or hematuria. No vaginal discharge. She admits to having some chills, but no fever. She also developed a dull frontal headache. About an hour ago she started complaining of some chest tightness, which has spontaneously eased after an hour. She thinks it is related to her heartburn because she has not had her Protonix. The patient denies any additional GI complaints. No nausea, vomiting. No associated anginal equivalent with the aforementioned chest pain. No edema, orthopnea. No dyspnea on exertion. The patient says she was treated for the flu a couple of weeks ago, still has a chronic cough productive of whitish sputum, which for her is not unusual. She relates this to underlying COPD and lung cancer. Exercise tolerance has not diminished, however. REVIEW OF SYSTEMS: Twelve system review was done, positive findings per HPI. ALLERGIES: No known allergies. HOME MEDICATION LIST: She is on Plavix 75 mg daily, Zanaflex 4 mg at bedtime, Celexa 20 mg at bedtime, Coreg 6.25 mg daily, gabapentin 300 mg 4 times a day, Imdur 30 mg b.i.d., Lopid 600 mg b.i.d., Norvasc 5 mg daily, lisinopril 5 mg daily. SURGICAL HISTORY: Notable for bypass surgery in 2000, cholecystectomy, anterior cervical fusion, right knee replacement, carpal tunnel surgery. She has had a med ports placed. SOCIAL HISTORY: She continues to smoke 1 pack a day. No alcohol or drug use. FAMILY HISTORY: Notable for CAD and strokes in first-degree relatives. LABORATORY WORK: White count 7000, hemoglobin and hematocrit 10 and 32, platelets 62,000, with an MCV of 114; 78% neutrophils. BUN 16, creatinine 0.7. Urinalysis positive nitrates, too-numerous- to-count WBCs, 4+ bacteria. Renal CT sorry shows right nephrolithiasis in the distant past, distal left urolithiasis without any significant obstruction, left lower lobe mass. PHYSICAL EXAMINATION: GENERAL: On examination, chronically ill-looking, middle-aged white female who is alert and oriented to person, time with normal mood and affect. HEENT: Head is normocephalic, atraumatic. Eyes: ALEXANDRE, EOMI. She is anicteric and not pale. ENT: Oropharyngeal exam is grossly normal. NECK: Supple. No JVD or carotid bruit. No thyromegaly. CHEST: Left basilar wheezes with decreased air entry in the bases. CARDIOVASCULAR: 1st and 2nd sounds heard. A 2/6 diastolic murmur heard. Rhythm is regular, symmetrical. ABDOMEN: Full, soft, nontender. No organomegaly. Bowel sounds are normal. Left CVA tenderness. RECTAL: Deferred. EXTREMITIES: Good distal pulse volume. No edema, clubbing, cyanosis. NEURO: No gross focal deficits. SKIN: Intact. No breakdown, lesion, erythema. Good skin turgor. MUSCULOSKELETAL: Grossly normal. ASSESSMENT: 1. Urinary tract infection with possible early pyelonephritis. 2. Bilateral ureteral stones. 3. Anemia and thrombocytopenia, probably secondary to chemotherapy. 4. Coronary artery disease. 5. Smoking, tobacco use. 6. Chronic obstructive pulmonary disease. 7. Peripheral arterial disease. 8. Hypertension. 9. Atypical chest pain. 10. Lung cancer, currently on chemotherapy. PLAN: The patient will be started with gram-negative coverage for urinary tract infection. Follow cultures. We will continue IV fluid rehydration and will start patient on Flomax to hasten expulsion of distal kidney stones. Continue her home medications, i.e., blood pressure medication, antiplatelets. Recommend statin therapy, if patient is able to tolerate. Smoking cessation was discussed. The patient does not have any imminent plans to quit smoking. cc: MD Yonatan Alexander MD
[2019-12-20] MEDS ORDERED: FLOMAX PO ONE (23:58)
[2019-12-20] MEDS ORDERED: TYLENOL PO PRN (23:58)
[2019-12-21] MEDS: ZOFRAN IV PRN ×2 (00:40→23:04)
[2019-12-21] MEDS: MAXIPIME 1 GM in NS 50 ML IV SCH ×3 (00:56→23:04)
[2019-12-21] MEDS: NS 1,000 ML IV SCH ×2 (00:57→06:27)
[2019-12-21] MEDS: DUONEB (A & A) INH SCH ×4 (03:48→22:01)
[2019-12-21] MEDS: PRILOSEC PO SCH (06:27)
[2019-12-21 08:03] LABS: BASO# 0.01 X1000 (0.0-0.2); BASO% 0.1 % (0.0-0.8); EOS# 0.04 X1000 (0.0-0.7); EOS% 0.2 % (0.0-10.0); HEMATOCRIT 30.8 % (37.0-47.0); HEMOGLOBIN 9.6 g/dL (12.0-16.0); IMM GRAN# 0.13 X1000 (0.0-0.04); IMM GRAN% 0.8 % (0.0-0.5); LYMPH# 1.56 X1000 (1.2-3.4); LYMPH% 9.4 % (20.5-51.1); MCHC 31.2 g/dL (33-37); MCV 115.4 FL (81-99); MONO# 1.06 X1000 (0.11-0.59); MONO% 6.4 % (1.7-9.3); MPV 11.8 FL (7.4-10.4); NEUT# 13.75 X1000 (1.4-6.5); NEUT% 83.1 % (42.2-75.2); PLT 61 X1000 (130-400); RBC 2.67 XMIL (4.2-5.4); RDW 19.2 % (11.5-14.5); WBC 16.55 X1000 (4.8-10.8)
[2019-12-21 08:31] LABS: AGAP 16; BUN 12 mg/dL (8-22); CALCIUM 8.2 mg/dL (8.8-10.2); CHLORIDE 103 mmol/L (98-107); COSMO 275; CREATININE 0.6 mg/dL (0.5-0.9); ESTIMATED GFR > 60; GLUCOSE 99 mg/dL (70-104); POTASSIUM 3.8 mmol/L (3.5-5.1); SODIUM 138 mmol/L (136-145); TCO2 19 mmol/L (25-35)
[2019-12-21 08:35] LABS: MAGNESIUM 1.9 mg/dL (1.5-2.7)
[2019-12-21 08:54] LABS: FERRITIN 1280 ng/mL (13-150); TSH 2.65 uIUmL (0.27-4.20)
[2019-12-21] MEDS: PLAVIX PO SCH (11:14)
[2019-12-21] MEDS: IMDUR PO SCH ×2 (11:14→22:27)
[2019-12-21] MEDS: NORVASC PO SCH (11:14)
[2019-12-21] MEDS: NEURONTIN PO SCH ×4 (11:15→22:26)
[2019-12-21] MEDS: COREG PO SCH ×2 (11:15→22:26)
--- NOTE | 2019-12-21 14:21 | PROGRESS NOTE ---
DATE: 12/21/2019 INTERVAL HISTORY: The patient's right CVA pain much improved. Afebrile overnight. No new complaints. REVIEW OF SYSTEMS: Twelve point review of systems negative except as per interval history. LABS: WBC 6.5, hemoglobin 9.6, hematocrit 30.8, platelets 61,000. Sodium 138, potassium 3.8, BUN 12, creatinine 0.6, magnesium 1.9. Ferritin 1280, iron 17, folate a little low at 2.9, TSH 2.65, B12 more than adequate. IMAGING: Renal CT with right-sided kidney stone and distal left stone in the ureter without obstruction on either side either side. Left lower lobe mass which is known. VITALS: T-max 98.6 degrees, pulse 88, respirations 20, blood pressure 124/109, O2 saturation 97% on room air. PHYSICAL EXAMINATION: General: No acute distress. Vitals: As above. HEENT: Normocephalic, atraumatic. Moist mucous membranes. No cervical adenopathy. Cardiovascular: Regular rate and rhythm, 3/6 left lower sternal border murmur noted. Pulmonary: Decreased air entry at the bases, otherwise largely clear to auscultation. Abdomen: Soft, nontender, nondistended. Bowel sounds positive. No CVA tenderness at the time of my exam. Extremities: Peripheral pulses intact. No clubbing, cyanosis. Neurologic: Cranial nerves grossly intact. No focal deficits identified. Psychiatric: Normal mood and affect. Awake, alert, oriented x3. ASSESSMENT AND PLAN: 1. Urinary tract infection versus possible early pyelonephritis. The patient with CVA tenderness on admission but now resolved. Afebrile. Does have pretty elevated leukocytosis. On antibiotics with cefepime and seems to be improving. We will continue that for now. Urine culture growing out gram-negative rods. We will see what that speciates as. If patient continues to do well, then may be able to transition to an oral antibiotic and discharge home tomorrow. 2. Bilateral kidney stones. They do not appear to be obstructing and patient's pain is improving, so no need for acute intervention at this time. Continue Flomax. 3. Anemia of thrombocytopenia, chronic and likely secondary to chemotherapy. Monitor. No need for transfusion at this time. 4. Known lung cancer. The patient follows with Oncology and is currently on chemo. 5. Coronary artery disease and peripheral vascular disease. Continue home Plavix. We will discuss with the patient why she is not on aspirin. 6. Chronic obstructive pulmonary disease. No sign of exacerbation at this time. Monitor. 7. Tobacco abuse. The patient has been counseled on cessation and does not appear to have any plans to quit right now. 8. Hypertension. Reasonable control on home medications. Continue to monitor.
[2019-12-21] MEDS ORDERED: CELEXA PO SCH (21:00)
[2019-12-21] MEDS ORDERED: FLOMAX PO SCH (22:00)
[2019-12-22] MEDS: DUONEB (A & A) INH SCH ×2 (03:29→10:44)
[2019-12-22] MEDS: PRILOSEC PO SCH (06:03)
[2019-12-22] MEDS: NEURONTIN PO SCH ×2 (09:55→12:23)
[2019-12-22] MEDS: IMDUR PO SCH (09:55)
[2019-12-22] MEDS: PLAVIX PO SCH (09:55)
[2019-12-22] MEDS: COREG PO SCH (09:55)
[2019-12-22] MEDS: NORVASC PO SCH (09:56)
[2019-12-22 10:08] LABS: HEMATOCRIT 28.5 % (37.0-47.0); HEMOGLOBIN 8.8 g/dL (12.0-16.0); MCH 35.6 PG (27-31); MCHC 30.9 g/dL (33-37); MCV 115.4 FL (81-99); RBC 2.47 XMIL (4.2-5.4); RDW 19.2 % (11.5-14.5); WBC 12.59 X1000 (4.8-10.8)
[2019-12-22 10:19] LABS: AGAP 11; BUN 10 mg/dL (8-22); CALCIUM 8.6 mg/dL (8.8-10.2); CHLORIDE 104 mmol/L (98-107); COSMO 273; CREATININE 0.5 mg/dL (0.5-0.9); ESTIMATED GFR > 60; GLUCOSE 136 mg/dL (70-104); POTASSIUM 3.6 mmol/L (3.5-5.1); SODIUM 136 mmol/L (136-145); TCO2 21 mmol/L (25-35)
[2019-12-22 11:46] VITALS: BP 105/54
[2019-12-22] MEDS: MAXIPIME 1 GM in NS 50 ML IV SCH (12:23)
--- NOTE | 2019-12-22 16:51 | DISCHARGE SUMMARY ---
ADMISSION DATE: 12/20/2019 DISCHARGE DATE: 12/22/2019 DISCHARGE DIAGNOSES: 1. Bilateral kidney stones. 2. Urinary tract infection. 3. Anemia of chronic disease. 4. Thrombocytopenia. 5. Lung cancer. 6. Coronary artery disease. 7. Peripheral vascular disease. 8. Chronic obstructive pulmonary disease without exacerbation. 9. Tobacco abuse. 10. Hypertension. HOSPITAL COURSE: Patient with history of lung cancer, currently undergoing chemo, presented with decreased urinary output, right CVA pain. On initial evaluation, she was found to have a fairly significant UTI with urinalysis showing moderate leukocytes, too numerous to count white cells, moderate blood. Imaging showed bilateral nonobstructing stones. There was no hydronephrosis. Due to patient's right CVA discomfort, there was some concern initially for pyelonephritis, but blood cultures remained negative and patient's pain resolved rapidly. She was afebrile. She did have fairly significant leukocytosis with a white count of 17.4, but this also improved fairly rapidly. It was down to 12.5 on discharge. She was noted to have anemia and thrombocytopenia. These were favored to be chemo related. She had no signs or symptoms of significant bleeding. The blood noted on her initial urinalysis cleared. Her iron studies were largely unremarkable. Iron was slightly low at 17 but ferritin was markedly elevated at 1,280. The patient was started on empiric antibiotics with cefepime. Urine culture came back with pansensitive E. coli and the patient was transitioned to oral Levaquin. Since patient's pain was resolved, she was afebrile, her leukocytosis was resolving, and she was eating and drinking well, it was decided she was stable to go home on oral antibiotic, to follow up with her PCP and oncologist. The patient numerous comorbidities were largely stable on this hospitalization. DISCHARGE VITAL SIGNS: Temperature 98.1 degrees, pulse 81, respirations 20, blood pressure 110/51, O2 saturation 94% on room air. DISCHARGE DIET: Regular. DISCHARGE MEDICATIONS: Celexa 20 mg p.o. at bedtime, Zanaflex 4 mg p.o. at bedtime, Coreg 6.25 mg p.o. b.i.d., gabapentin 300 mg p.o. 4 times a day, Isosorbide mononitrate 30 mg p.o. b.i.d., gemfibrozil 600 mg p.o. b.i.d., Norvasc 5 mg p.o. daily, Plavix 75 mg p.o. daily, lisinopril 5 mg p.o. daily, Levaquin 500 mg p.o. daily for 6 more days. FOLLOW UP AND PLAN: Patient discharging home on oral Levaquin. Patient to follow up with PCP and oncologist. TIME SPENT: Greater than 30 minutes spent arranging discharge and counseling patient.
== END 2019-12-22 14:09 | disposition home or self-care (01) | DRG 690 ==
LOC: ED 17:42 → 3N 22:26 → SUATTDRO 22:26
PROVIDERS: ATTEND Internal Medicine